=== PATIENT | female | born 1975 | race Caucasian/White ===

== ENCOUNTER 2016-10-31 14:22 | Emergency (ER) | payer BC ==
[~2016-10-31] VITALS: Ht 170.2 cm; Wt 64.4 kg
[2016-10-31 14:32] VITALS: TEMP 36.6
[2016-10-31] MEDS ORDERED: SODIUM CHLORIDE 0.9% 1000ML 1,000 ML IV STA (14:34)
[2016-10-31 15:02] VITALS: O2SAT 100; Ht 170.2 cm; Wt 64.4 kg
[2016-10-31 15:02] LABS: BASO % 0.2 %; BASO ABS # 0.01 K/uL (0-0.2); COMPLETE YES; EOS % 1.9 %; HEMATOCRIT 38.7 % (37-47); LYMPH % 29.4 %; LYMPH ABS # 1.55 K/uL (1.2-3.4); MEAN CELL VOLUME 89.4 fL (80-100); MEAN CORPUSCULAR HEMOGLOBIN 29.3 pg (25-34); MEAN CORPUSCULAR HGB CONC 32.8 g/dl (32-36); MEAN PLATELET VOLUME 10.6 fL (7.4-10.4); MONO % 11.2 %; NEUT % 57.3 %; PLATELET COUNT 186 K/uL (130-400); RED BLOOD COUNT 4.33 M/uL (4.2-5.4); WHITE BLOOD COUNT 5.27 K/uL (4.8-10.8)
--- NOTE | 2016-10-31 15:16 | DIAGNOSTIC IMAGING REPORT ---
SINGLE VIEW CHEST CLINICAL HISTORY: Syncope. FINDINGS: An AP, portable, upright chest radiograph is obtained. No prior studies are available for comparison at the time of dictation. The cardiomediastinal silhouette is unremarkable. The lungs and pleural spaces are clear. No pneumothorax is seen. The bony thorax is grossly intact. IMPRESSION: No active disease in the chest. Electronically signed by: Gerson Harrell M.D. 10/31/2016 3:15 PM Dictated Date/Time: 10/31/2016 3:14 PM
--- NOTE | 2016-10-31 15:17 | DIAGNOSTIC IMAGING REPORT ---
LEFT FOOT 3 VIEWS CLINICAL HISTORY: Syncope. Left foot injury. FINDINGS: 3 portable views of left foot are obtained. No prior studies are available for comparison at the time of dictation. The skeletal structures are well mineralized. There is a minimally distracted fracture through the base of the fifth metatarsal with overlying soft tissue edema. No additional fracture is seen. The joint spaces of the foot appear preserved. There is a tiny plantar heel spur. IMPRESSION: Minimally distracted fracture through the base of the fifth metatarsal with overlying soft tissue edema. Electronically signed by: Gerson Harrell M.D. 10/31/2016 3:16 PM Dictated Date/Time: 10/31/2016 3:15 PM
[2016-10-31 15:19] LABS: ALT/SGPT 20 U/L (12-78); AST/SGOT 13 U/L (15-37); BLOOD UREA NITROGEN 17 mg/dl (7-18); BUN/CREATININE RATIO 18.8 (10-20); CALCIUM 8.6 mg/dl (8.5-10.1); CARBON DIOXIDE 30 mmol/L (21-32); CHLORIDE 107 mmol/L (98-107); CREATININE 0.92 mg/dl (0.60-1.20); GLUCOSE 93 mg/dl (70-99); MAGNESIUM 2.3 mg/dl (1.8-2.4); SODIUM 141 mmol/L (136-145)
[2016-10-31 15:25] LABS: PREG INTERNAL NEGATIVE QC NEG CLEAR BACKGROUND; PREG INTERNAL POSITIVE QC POS CONTROL LINE
[2016-10-31 15:29] LABS: ALKALINE PHOSPHATASE 85 U/L (45-117)
[2016-10-31] MEDS ORDERED: MULT-513 PO (15:32)
[2016-10-31] MEDS ORDERED: CALCTAB7 PO (15:32)
[2016-10-31] MEDS ORDERED: OMEG10007 PO (15:32)
[2016-10-31] MEDS ORDERED: BCPILLS PO (15:32)
[2016-10-31] MEDS ORDERED: B-CO1CAP17 PO (15:32)
[2016-10-31] MEDS ORDERED: GLUCTAB7 PO (15:32)
[2016-10-31] MEDS ORDERED: HYDR-5688 PO (16:53)
[2016-10-31] MEDS ORDERED: HYDROCODONE/ACETAMOPHEN 5/325MG TAB PO STA (17:04)
[2016-10-31 17:12] LABS: URINE APPEARANCE CLEAR (CLEAR); URINE BILIRUBIN NEG (NEG); URINE COLOR YELLOW; URINE NITRITE NEG (NEG); URINE SPECIFIC GRAVITY 1.013 (1.000-1.030); UROBILINOGEN NEG (NEG)
[2016-10-31 17:22] LABS: MANUAL MICROSCOPIC REQUIRED? NO; REVIEW REQ? NO
[2016-10-31 17:36] VITALS: BP 128/72; PULSE 76; O2SAT 98
--- NOTE | 2016-11-01 00:06 | EMERGENCY ROOM VISIT NOTE ---
History Report prepared by Gisella: Davon Chinchilla Under the Supervision of: Dr. Wesley Bolanos M.D. First contact with patient: 14:29 Chief Complaint: SYNCOPE Stated Complaint: LEFT FOOT PAIN Nursing Triage Summary: Pt arrives to ER via BLS after a syncopal episode. Pt rolled L ankle off of curb and when returning to her seat she bent down and lost consciousness. Pts friends assisted her outside and pt experienced another syncopal episode. EMS arrived and transferred to hospital. Pt c/o pain in L ankle, reports no medical hx or other s/s. History of Present Illness The patient is a 41 year old female who presents to the Emergency Room via BLS with complaints of sudden syncopal episodes beginning just prior to arrival. She currently rates her discomfort as a 3/10 in severity. The patient states she is in town for a conference. She notes she was walking, and she rolled her left foot off of the curb. The patient states she did not think much about the incident, so she kept walking and talked with friends. She notes she limped back to a chair, and when she bent down to feel her ankle and sat back up that she had double vision and passed out. The patient notes her friends then walked her to the parking lot, where she passed out again. She states she was taken to a room, where she began to notice the pain in her left foot. The patient notes she then began to experience dizziness, nausea, and a sudden urge to go to the bathroom. She states she remembers people talking to her, but she could not talk back. The patient notes this was the time that the ambulance arrived. She denies hitting her head. Pt denies headache, fevers, chills, diaphoresis, neck pain, chest pain, breathing difficulties, vomiting, abdominal pain, back pain, melena, hematochezia, urinary symptoms, numbness, weakness, lymphadenopathy, rash, or other complaints. Source of History: patient Onset: just prior to arrival Position: other (global) Symptom Intensity: 3/10 Quality: other (syncope) Timing: other (sudden) Associated Symptoms: + LOC, + nausea (resolved) Note: Associated symptoms: left foot pain, resolved dizziness, resolved double vision. Review of Systems See HPI for pertinent positives and negatives. A total of ten systems were reviewed and were otherwise negative. Past Medical & Surgical Surgical Problems: (1) H/O tympanostomy (2) S/P appendectomy (3) S/P section Family History Patient reports no known family medical history. Social History Smoking Status: Former Smoker Alcohol Use: occasionally Occupation Status: employed Current/Historical Medications Scheduled Control Pills ( Control Pills), 1 TAB PO DAILY Calcium Carbonate-Vitamin D W/ (Caltrate 600 Plus), 1 TAB PO DAILY Fish Oil (Ernul-3), 1 CAP PO DAILY Zfiyocxjpay-Ymnrpcegnep-Dzl C- (Glucosamine Chondroitin), 1 TAB PO DAILY Multivitamins/Minerals (Mvi With Minerals), 1 TAB PO DAILY Vitamin B Cmplx/Vitc/Folic Ac (Nephrocaps), 1 CAP PO DAILY Scheduled PRN Hydrocodone/Acetaminophen 5MG/325MG ([place] 5MG/325MG), 1-2 TABS PO Q6H PRN for Pain Physical Exam Vital Signs Date Time Temp Pulse Resp B/P Pulse Ox O2 Delivery O2 Flow Rate FiO2 10/31/16 17:36 76 16 128/72 98 10/31/16 16:55 66 16 120/68 99 80 134/88 77 120/90 10/31/16 15:21 74 16 99 10/31/16 15:02 100 Room Air 10/31/16 14:34 56 10/31/16 14:32 36.6 73 16 125/78 99 Room Air 10/31/16 14:32 99 Room Air Physical Exam GENERAL: Awake, alert, well appearing, no distress HENT: Normocephalic, atraumatic. TM's normal. Oropharynx unremarkable. EYES: PERRL. EOMI. Normal conjunctiva. Sclera non-icteric. NECK: Supple. No nuchal rigidity. FROM. No JVD or bruit. RESPIRATORY: CTA CARDIAC: RRR. No murmur. ABDOMEN: Soft, non distended. No tenderness to palpation. No rebound or guarding. No masses. RECTAL: Deferred. MUSCULOSKELETAL: Swelling over the proximal 5th metatarsal, tenderness to palpation. Remainder of left lower extremity is atraumatic, no open wounds. Upper and right lower extremity atraumatic. No discoloration. Gross motor strength symmetric. NEURO: Cranial nerves 2-12 grossly intact. Normal sensorium. No sensory or motor deficits noted. Gait normal. Speech normal. No pronator drift. SKIN: No rash or jaundice noted. LYMPH: No adenopathy. Medical Decision & Procedures ER Provider Diagnostic Interpretation: X-ray: Per my interpretation, radiologist review. LEFT FOOT 3 VIEWS CLINICAL HISTORY: Syncope. Left foot injury. FINDINGS: 3 portable views of left foot are obtained. No prior studies are available for comparison at the time of dictation. The skeletal structures are well mineralized. There is a minimally distracted fracture through the base of the fifth metatarsal with overlying soft tissue edema. No additional fracture is seen. The joint spaces of the foot appear preserved. There is a tiny plantar heel spur. IMPRESSION: Minimally distracted fracture through the base of the fifth metatarsal with overlying soft tissue edema. Electronically signed by: Gerson Harrell M.D. 10/31/2016 3:16 PM SINGLE VIEW CHEST CLINICAL HISTORY: Syncope. FINDINGS: An AP, portable, upright chest radiograph is obtained. No prior studies are available for comparison at the time of dictation. The cardiomediastinal silhouette is unremarkable. The lungs and pleural spaces are clear. No pneumothorax is seen. The bony thorax is grossly intact. IMPRESSION: No active disease in the chest. Electronically signed by: Gerson Harrell M.D. 10/31/2016 3:15 PM Laboratory Results 10/31/16 14:50 Red Blood Count 4.33, Mean Corpuscular Volume 89.4, Mean Corpuscular Hemoglobin 29.3, Mean Corpuscular Hemoglobin Concent 32.8, Mean Platelet Volume 10.6, Neutrophils (%) (Auto) 57.3, Lymphocytes (%) (Auto) 29.4, Monocytes (%) (Auto) 11.2, Eosinophils (%) (Auto) 1.9, Basophils (%) (Auto) 0.2, Neutrophils # (Auto ) 3.02, Lymphocytes # (Auto) 1.55, Monocytes # (Auto) 0.59, Eosinophils # (Auto ) 0.10, Basophils # (Auto) 0.01 10/31/16 14:50 Test 10/31/16 14:50 10/31/16 16:30 White Blood Count 5.27 K/uL (4.8-10.8) Red Blood Count 4.33 M/uL (4.2-5.4) Hemoglobin 12.7 g/dL (12.0-16.0) Hematocrit 38.7 % (37-47) Mean Corpuscular Volume 89.4 fL (80-100) Mean Corpuscular Hemoglobin 29.3 pg (25-34) Mean Corpuscular Hemoglobin Concent 32.8 g/dl (32-36) Platelet Count 186 K/uL (130-400) Mean Platelet Volume 10.6 fL (7.4-10.4) Neutrophils (%) (Auto) 57.3 % Lymphocytes (%) (Auto) 29.4 % Monocytes (%) (Auto) 11.2 % Eosinophils (%) (Auto) 1.9 % Basophils (%) (Auto) 0.2 % Neutrophils # (Auto) 3.02 K/uL (1.4-6.5) Lymphocytes # (Auto) 1.55 K/uL (1.2-3.4) Monocytes # (Auto) 0.59 K/uL (0.11-0.59) Eosinophils # (Auto) 0.10 K/uL (0-0.5) Basophils # (Auto) 0.01 K/uL (0-0.2) RDW Standard Deviation 44.2 fL (36.4-46.3) RDW Coefficient of Variation 13.3 % (11.5-14.5) Immature Granulocyte % (Auto) 0.0 % Immature Granulocyte # (Auto) 0.00 K/uL (0.00-0.02) Anion Gap 4.0 mmol/L (3-11) Est Creatinine Clear Calc Drug Dose 76.7 ml/min Estimated GFR () 88.4 Estimated GFR (Non- 76.3 BUN/Creatinine Ratio 18.8 (10-20) Calcium Level 8.6 mg/dl (8.5-10.1) Magnesium Level 2.3 mg/dl (1.8-2.4) Total Bilirubin 0.2 mg/dl (0.2-1) Direct Bilirubin < 0.1 mg/dl (0-0.2) Aspartate Amino Transf (AST/SGOT) 13 U/L (15-37) Alanine Aminotransferase (ALT/SGPT) 20 U/L (12-78) Alkaline Phosphatase 85 U/L (45-117) Total Protein 6.6 gm/dl (6.4-8.2) Albumin 3.6 gm/dl (3.4-5.0) Thyroid Stimulating Hormone (TSH) 1.030 uIu/ml (0.300-4.500) Human Chorionic Gonadotropin, Qual NEG (NEG) Urine Color YELLOW Urine Appearance CLEAR (CLEAR) Urine pH 7.0 (4.5-7.5) Urine Specific Sinclair 1.013 (1.000-1.030) Urine Protein NEG (NEG) Urine Glucose (UA) NEG (NEG) Urine Ketones NEG (NEG) Urine Occult Blood NEG (NEG) Urine Nitrite NEG (NEG) Urine Bilirubin NEG (NEG) Urine Urobilinogen NEG (NEG) Urine Leukocyte Esterase NEG (NEG) Laboratory results reviewed by me Medications Administered Medications (Trade) Dose Ordered Sig/Deana Route Start Time Stop Time Status Last Admin Dose Admin Sodium Chloride (Nss 1000ml) 1,000 ml @ 999 mls/hr Q1H1M STAT IV 10/31/16 14:34 10/31/16 15:34 DC 10/31/16 15:15 999 MLS/HR Acetaminophen/ Hydrocodone Bitart ([place] 5/325 Tab) 1 tab NOW STAT PO 10/31/16 17:04 10/31/16 17:05 DC 10/31/16 17:04 1 TAB ECG Indication: syncope Rate (beats per minute): 60 Rhythm: normal sinus (w/ sinus arrhythmia) Findings: no acute ischemic change, no ectopy, other (normal intervals) ED Course 1431: The patient was evaluated in room B11A. A complete history and physical exam was performed. 1434: Ordered Sodium Chloride 1,000 ml @ 999 mls/hr IV. 1544: Reevaluated and updated the patient at this time. 1643: I spoke to [facility] (Orthopedic Surgery) about the patient's case, and he recommended a CAM boot and outpatient follow up. 1704: Ordered Acetaminophen/Hydrocodone Bitart 1 tab PO. 1705: I reevaluated the patient. She is comfortable with being discharged and following up as an outpatient. Discussed results and discharge instructions: She verbalized understanding and agreement. The patient is ready for discharge. Medical Decision Triage Nursing notes reviewed and agree them. The patient's history was concerning for syncope and a foot injury. Differential diagnosis: Etiologies such as fracture, dislocation, sprain, vasovagal event infection, hypoglycemia, electrolyte abnormalities, cardiac sources, intracerebral event, toxicologic, neurologic, as well as others were entertained. Physical examination: As above. Nonfocal neurologic examination. The patient had findings concerning for a fifth metatarsal fracture, proximal. ER treatment provided: IV hydration with normal saline On reassessment the patient felt well. She initially declined analgesia but then requested some. She was given one [place]. Cam boot Diagnostics interpretation by me: ECG: Normal The labs revealed an unremarkable cbc, chemistry panel, magnesium, test, urinalysis, and LFTs Imaging studies: X-ray Consultation: A consultation was placed with orthopedics. The case was discussed and diagnostics were reviewed. Walking boot and outpatient follow-up was recommended. This was done. The patient had twisted her foot and ankle. She had no pain in the ankle area just pain in the left fifth metatarsal. She had no knee or proximal fibula tenderness. The remainder of the left lower extremity was atraumatic as was both upper extremities and right lower extremity. She then described vagal- like symptoms and had a syncopal episode. The patient is very active on a routine basis without any problems. Her diagnostic testing was unremarkable here. I suspect the foot injury is what triggered the syncope in a vasovagal- like reaction. Clinically she is doing very well at this time and will need close outpatient follow-up with her primary and with orthopedics. The patient was in agreement.I gave my usual and customary discussion regarding this issue. By the evaluation outlined above emergent etiologies such as infection, hypoglycemia, electrolyte abnormalities, cardiac sources, intracerebral event, toxicologic, neurologic,as well as others were deemed relatively unlikely. The patient was informed about the findings as listed above. All questions were answered and she was pleased with the treatment. Return instructions were outlined and the patient was discharged in stable condition. Outpatient prescription management: [place] Referral: The patient was referred back to orthopedics and primary care physician for follow-up next week for a recheck of the current condition. The chart was completed utilizing [employer] voice recognition software. Grammatical errors, random word insertions, pronoun errors, and incomplete sentences are an occasional consequence of this system due to software limitations, ambient noise, and hardware issues. Any formal questions or concerns about the content, text, or information contained within the body of this dictation should be directly addressed to the physician for clarification. [place] Drug Monitoring Program Search Results: patient reviewed within database, no issues identified Consults Time Called: 1642 Consulting Physician: [facility] (Orthopedic Surgery) Returned Call: 1642 I spoke to [facility] ([facility]) about the patient's case, and he recommended a CAM boot and outpatient follow up. Impression Primary Impression: Syncope Additional Impression: Fracture of fifth metatarsal bone of left foot Scribe Attestation The scribe's documentation has been prepared under my direction and personally reviewed by me in its entirety. I confirm that the note above accurately reflects all work, treatment, procedures, and medical decision making performed by me. Departure Information Dispostion Home / Self-Care Prescriptions Hydrocodone/Acetaminophen 5MG/325MG ([place] 5MG/325MG) Tab 1-2 TABS PO Q6H Y for Pain, #20 TAB Prov: Wesley Bolanos MD 10/31/16 Forms HOME CARE DOCUMENTATION FORM, IMPORTANT VISIT INFORMATION Patient Instructions My [facility] Additional Instructions SYNCOPE (PASSING OUT) INSTRUCTIONS: Rest and drink plenty of fluids as tolerated. Continue current medications. Return to the ER for passing out, chest pain, headache, persistent vomiting, fevers, abdominal pain, chest pains, difficulty breathing, black or bloody stools, worsening of your condition, or as needed. Follow up with your primary physician in 3 days for a recheck of your current condition ORTHOPEDIC INSTRUCTIONS: You have a fracture of the left proximal fifth metatarsal. DO NOT drive, drink alcohol, operate machinery, or perform dangerous activities today. You were given medications in the ER that can affect your ability to safely function or operate a vehicle. Hydrocodone/acetaminophen 5/325mg: Take 1-2 pills every 6 hours as needed for pain. Avoid additional Acetaminophen/Tylenol, alcohol, operating machinery or dangerous equipment, working on ladders or roofs, DRIVING, or situations where being under the influence may be dangerous. It is recommended to use a stool softener such as Colace, 100mg twice daily while taking this medication to avoid constipation. Ibuprofen(Motrin, Advil) may be used for fever or pain. Use 600mg every six hours as needed. Take with food. Avoid using more than 2400mg in a 24 hour period. Do not use 2400mg per day for more than three consecutive days without physician direction. Prolonged inappropriate use can lead to stomach upset or ulcers. Ice compresses for 20 minutes at a time four times daily for 2-3 days. Use the walking boot as instructed. You may remove the boot for showering or bathing. Do not walk without the boot in place until followed up with orthopedics. Rest and elevate your injury. Return to the ER immediately for any numbness, tingling, severe pain, extreme swelling in the extremity or as needed. Follow-up with orthopedics next week when you return home. The easiest way to do this as to talk your family doctor's office on Thursday for a referral. Problem Qualifiers
== END 2016-10-31 17:05 | disposition home or self-care (01) ==
LOC: EDBD 14:22 → C.EDB 14:25
DX: R55 Syncope and collapse (principal); S92.352A Displaced fracture of fifth metatarsal bone, left foot, initial encounter for closed fracture; W10.1XXA Fall (on)(from) sidewalk curb, initial encounter; Z87.891 Personal history of nicotine dependence; Z79.3 Long term (current) use of hormonal contraceptives; Z79.899 Other long term (current) drug therapy